=== PATIENT | male | born 1985 | race Caucasian/White ===

== ENCOUNTER → 2017-02-20 | Outpatient (CLI) | payer OTHER ==
--- NOTE | 2017-02-20 17:12 | Diagnostic Imaging Report ---
PROCEDURE: US THYROID COMPARISON: None. INDICATIONS:Right Goiter, swelling in the right neck after pulling a muscle at work TECHNIQUE: Transverse and longitudinal manuel-scale sonographic images of the thyroid were obtained and supplemented with color doppler. FINDINGS: Right thyroid lobe: 5.2 x 2.1 x 1.9 cm. Normal echogenicity. Normal vascularity. No focal lesions. Left thyroid lobe: 4.7 x 1.4 x 2.2 cm. Normal echogenicity. Normal vascularity. 0.4 x 0.4 x 0.3 cm cystic, anechoic lesion in the mid aspect, consistent with a colloid cyst. No other lesions. Isthmus: 0.5 cm. Normal echogenicity. Normal vascularity. No focal lesions. No parathyroid masses. Normal appearing, normal sized bilateral cervical lymph nodes, with normal fatty jeri. CONCLUSION: 1. Normal bilateral thyroid lobe size and echogenicity. 2. 0.4 cm left colloid cyst. Melvin Fisher M.D. Dictated by: Melvin Fisher M.D. on 02/20/2017 at 17:20 Electronically approved by: Melvin Fisher M.D. on 02/20/2017 at 17:20
== END ==
LOC: US 14:30
PROVIDERS: ATTEND Internal Medicine
DX: E04.8 Other specified nontoxic goiter (principal)
CPT/HCPCS: 76536